=== PATIENT | male | born 1990 | race Caucasian/White ===

== ENCOUNTER 2016-11-10 16:22 | Emergency (ER) | payer OTHER ==
[~2016-11-10] VITALS: Ht 188 cm; Wt 109.1 kg
[~2016-11-10 16:22] MED LIST: AMOXICILLIN875 MG PO; INDOCIN25 MG PO; MOTRIN600 MG PO; MOTRIN800 MG PO; NAPROSYN500 MG PO; NAPROXEN500 MG; NO HOME MEDS; NORCO 7.5/321 TABLET PO; PEN-VEE K,VEET500 MG PO; PERCOCET 5/31 TABLET PO; ZOFRAN4 MG PO
[2016-11-10 16:39] VITALS: BP 152/93
[2016-11-10] MEDS ORDERED: INDOCIN50 MG PO (18:00)
== END 2016-11-10 18:23 | disposition home or self-care (01) ==
LOC: EME 16:22
DX: S93.401A Sprain of unspecified ligament of right ankle, initial encounter (principal); X50.1XXA Overexertion from prolonged static or awkward postures, initial encounter; F17.200 Nicotine dependence, unspecified, uncomplicated
CPT/HCPCS: 73610; 99281; 99284

== ENCOUNTER 2017-01-30 10:51 | Emergency (ER) | payer OTHER ==
[~2017-01-30] VITALS: Ht 188 cm; Wt 108.0 kg
[~2017-01-30 10:51] MED LIST changes: +INDOCIN50 MG PO
[2017-01-30 10:54] VITALS: BP 146/99
== END 2017-01-30 13:01 | disposition left against medical advice (07) ==
LOC: EME 10:51
DX: F10.20 Alcohol dependence, uncomplicated (principal); Z53.21 Procedure and treatment not carried out due to patient leaving prior to being seen by health care provider

== ENCOUNTER 2017-02-01 13:01 | Emergency (ER) | payer OTHER ==
[~2017-02-01] VITALS: Ht 188 cm; Wt 107.0 kg
[2017-02-01 15:33] LABS: EOSINOPHIL (%) 0.3 % (0-5); HEMATOCRIT 47.5 % (38.0-50.0); IMMATURE GRANULOCYTE (%) 0.3 % (0.0-0.7); INSTRUMENT ABS NEUTROPHIL CT 5.9 K/uL; LYMPHOCYTE COUNT 1.4 K/uL (1.0-2.8); MCH 31.3 PG (29.0-34.0); MCHC 34.7 G/DL (30.0-36.0); MEAN PLAT.VOLUME 10.9 uM^3 (9.0-12.4); MONOCYTE (%) 5.7 % (3-12); MONOCYTE COUNT 0.4 K/uL (0-0.8); NEUTROPHIL (%) 75.3 % (45-76); NEUTROPHIL COUNT 5.9 K/uL (1.8-6.4); PLATELET COUNT 226 K/uL (156-360); RBC DIS.WIDTH-CV 12.8 % (11.8-14.6); RBC DIS.WIDTH-SD 42.5 % (39-53); RED BLOOD COUNT 5.28 M/uL (4.00-5.50); WHITE BLOOD COUNT 7.8 K/uL (4.1-10.2)
[2017-02-01 15:41] LABS: CHLORIDE 105 mEq/L (99-109); POTASSIUM 4.1 mEq/L (3.7-5.4); SODIUM 142 mEq/L (136-147)
[2017-02-01 15:43] LABS: GLUCOSE 73 mg/dL (70-99)
[2017-02-01 15:44] LABS: ANION GAP 12 MEQ/L (2-14)
[2017-02-01 15:46] LABS: SERUM ETHYL ALCOHOL 20 mg/dL
[2017-02-01 15:47] LABS: GFR ESTIMATE (CALCULATED) > 59 mL/min/
[2017-02-01 15:48] LABS: UREA NITROGEN (BUN) 10 mg/dL (9-23)
[2017-02-01] MEDS ORDERED: THIAMINE HCL100 MG PO (16:30)
[2017-02-01] MEDS ORDERED: LIBRIUM25 MG PO (16:30)
[2017-02-01 16:52] VITALS: BP 152/92
== END 2017-02-01 17:00 | disposition home or self-care (01) ==
LOC: EME 13:01
PROVIDERS: Emergency Medicine
DX: F10.20 Alcohol dependence, uncomplicated (principal); T51.0X1A Toxic effect of ethanol, accidental (unintentional), initial encounter; G25.2 Other specified forms of tremor; R19.7 Diarrhea, unspecified; R42 Dizziness and giddiness; R11.0 Nausea; F32.9 Major depressive disorder, single episode, unspecified; F41.9 Anxiety disorder, unspecified; F17.200 Nicotine dependence, unspecified, uncomplicated
CPT/HCPCS: 80048; 81003; 85025; 99281; 99283; G0480

== ENCOUNTER 2017-02-16 10:52 | Emergency (ER) | payer OTHER ==
[~2017-02-16] VITALS: Ht 188 cm; Wt 104.8 kg
[~2017-02-16 10:52] MED LIST changes: +LIBRIUM25 MG PO; +THIAMINE HCL100 MG PO
[2017-02-16 12:30] LABS: ADD MIUA? YES; BILIRUBIN NEGATIVE; BLOOD NEGATIVE; COLOR YELLOW ((YELLOW)); GLUCOSE (STRIP) NEGATIVE; KETONES NEGATIVE; LEUKOCYTES NEGATIVE; NITRITE NEGATIVE; PROTEIN (STRIP) NEGATIVE; SPECIFIC GRAVITY 1.025 (1.000-1.030); UROBILINOGEN 0.2 MG/DL (0.2-1.0)
[2017-02-16 12:36] LABS: BACTERIA NONE SEEN /HPF; EPITHELIAL CELLS RARE /HPF; MUCUS TRACE /LPF; RED BLOOD CELLS 0-5 /HPF (0-5); UCUL ADDED? YES
[2017-02-16 12:40] LABS: AMPHETAMINE NEGATIVE (500 ng/mL); BENZODIAZEPINES PRESUMPTIVE POSITIVE (150 ng/mL); COCAINE PRESUMPTIVE POSITIVE (150 ng/mL); METHADONE NEGATIVE (200 ng/mL); METHAMPHETAMINE NEGATIVE (500 ng/mL); OPIATES (MORPHINE) NEGATIVE (100 ng/mL); PHENCYCLIDINE NEGATIVE (25 ng/mL); THC CANNABINOIDS PRESUMPTIVE POSITIVE (50 ng/mL); TRICYCLIC ANTIDEPRESSANTS NEGATIVE (300 ng/mL)
[2017-02-16 12:41] LABS: ADD MEDTOX COMMENT Y; BARBITURATES NEGATIVE (200 ng/mL); INTERNAL CONTROLS VALID? YES; OXYCODONE NEGATIVE (100 ng/mL); PROPOXYPHENE NEGATIVE (300 ng/mL)
[2017-02-16 12:51] LABS: EOSINOPHIL (%) 0 % (0-5); HEMATOCRIT 44.1 % (38.0-50.0); IMMATURE GRANULOCYTE (%) 0.2 % (0.0-0.7); INSTRUMENT ABS NEUTROPHIL CT 3.8 K/uL; LYMPHOCYTE COUNT 1.2 K/uL (1.0-2.8); MCH 31.5 PG (29.0-34.0); MCHC 34.2 G/DL (30.0-36.0); MCV 91.9 FL (86-99); MEAN PLAT.VOLUME 10.9 uM^3 (9.0-12.4); MONOCYTE (%) 4.4 % (3-12); MONOCYTE COUNT 0.2 K/uL (0-0.8); NEUTROPHIL (%) 73.2 % (45-76); NEUTROPHIL COUNT 3.8 K/uL (1.8-6.4); PLATELET COUNT 244 K/uL (156-360); RBC DIS.WIDTH-CV 13.3 % (11.8-14.6); RBC DIS.WIDTH-SD 45.1 % (39-53); WHITE BLOOD COUNT 5.2 K/uL (4.1-10.2)
[2017-02-16 13:03] LABS: CHLORIDE 107 mEq/L (99-109); POTASSIUM 4.7 mEq/L (3.7-5.4); SODIUM 140 mEq/L (136-147)
[2017-02-16 13:05] LABS: GLUCOSE 98 mg/dL (70-99)
[2017-02-16 13:06] LABS: ANION GAP 9 MEQ/L (2-14)
[2017-02-16 13:09] LABS: GFR ESTIMATE (CALCULATED) > 59 mL/min/
[2017-02-16 13:10] LABS: UREA NITROGEN (BUN) 12 mg/dL (9-23)
[2017-02-16 13:13] LABS: TROP-I INTERPRETATION NEGATIVE; TROPONIN-I < 0.01 ng/mL (0.0-0.30)
[2017-02-16 13:28] LABS: BENZODIAZEPINES, URINE SCREEN POSITIVE (200 ng/mL)
[2017-02-16 14:04] VITALS: BP 155/78
== END 2017-02-16 14:05 | disposition home or self-care (01) ==
LOC: EME 10:52
PROVIDERS: Emergency Medicine
DX: F19.10 Other psychoactive substance abuse, uncomplicated (principal); F12.90 Cannabis use, unspecified, uncomplicated; F17.200 Nicotine dependence, unspecified, uncomplicated
CPT/HCPCS: 80048; 81003; 84484; 84999; 85025; 87086; 93005; 99281; 99285

== ENCOUNTER 2017-02-19 12:32 | Emergency (ER) | payer OTHER ==
[~2017-02-19] VITALS: Ht 182.9 cm; Wt 107.2 kg
[2017-02-19 13:43] LABS: EOSINOPHIL (%) 0.7 % (0-5); HEMATOCRIT 44.9 % (38.0-50.0); IMMATURE GRANULOCYTE (%) 0.2 % (0.0-0.7); INSTRUMENT ABS NEUTROPHIL CT 2.7 K/uL; LYMPHOCYTE COUNT 1.3 K/uL (1.0-2.8); MCH 31.4 PG (29.0-34.0); MCHC 34.1 G/DL (30.0-36.0); MEAN PLAT.VOLUME 11.6 uM^3 (9.0-12.4); MONOCYTE (%) 7.8 % (3-12); MONOCYTE COUNT 0.3 K/uL (0-0.8); NEUTROPHIL COUNT 2.7 K/uL (1.8-6.4); PLATELET COUNT 191 K/uL (156-360); RBC DIS.WIDTH-SD 44.1 % (39-53); RED BLOOD COUNT 4.88 M/uL (4.00-5.50); WHITE BLOOD COUNT 4.4 K/uL (4.1-10.2)
[2017-02-19 13:54] LABS: CHLORIDE 105 mEq/L (99-109); POTASSIUM 4.2 mEq/L (3.7-5.4); SODIUM 141 mEq/L (136-147)
[2017-02-19 13:56] LABS: GLUCOSE 77 mg/dL (70-99)
[2017-02-19 13:57] LABS: ANION GAP 14 MEQ/L (2-14)
[2017-02-19 13:58] LABS: TOTAL BILIRUBIN 1.4 mg/dL (0.0-1.0)
[2017-02-19 13:59] LABS: ALKALINE PHOSPHATASE 77 IU/L (3-129)
[2017-02-19 14:00] LABS: GFR ESTIMATE (CALCULATED) > 59 mL/min/
[2017-02-19 14:01] LABS: UREA NITROGEN (BUN) 11 mg/dL (9-23)
[2017-02-19 14:03] LABS: LIPASE 12 U/L (1.0-51.0)
[2017-02-19] MEDS ORDERED: COLACE100 MG PO (15:36)
[2017-02-19] MEDS ORDERED: BENTYL20 MG PO (15:36)
[2017-02-19] MEDS ORDERED: FLAGYL500 MG PO (15:36)
[2017-02-19] MEDS ORDERED: CIPRO500 MG PO (15:36)
[2017-02-19] MEDS ORDERED: CITRATE OF MAG296 ML PO (15:36)
[2017-02-19 16:15] VITALS: BP 153/69
[2017-02-20] MEDS ORDERED: CITRATE OF MAG296 ML PO (20:56)
== END 2017-02-19 16:18 | disposition home or self-care (01) ==
LOC: EME 12:32
PROVIDERS: Emergency Medicine
DX: K52.9 Noninfective gastroenteritis and colitis, unspecified (principal); K59.00 Constipation, unspecified; F41.9 Anxiety disorder, unspecified; F32.9 Major depressive disorder, single episode, unspecified; F17.200 Nicotine dependence, unspecified, uncomplicated; F12.90 Cannabis use, unspecified, uncomplicated; F14.90 Cocaine use, unspecified, uncomplicated; F10.10 Alcohol abuse, uncomplicated
CPT/HCPCS: 74177; 80053; 83690; 85025; 99281; 99285; J1885

== ENCOUNTER 2017-02-20 18:02 | Emergency (ER) | payer OTHER ==
[~2017-02-20] VITALS: Ht 188 cm; Wt 110.6 kg
[~2017-02-20 18:02] MED LIST changes: +BENTYL20 MG PO; +CIPRO500 MG PO; +CITRATE OF MAG296 ML PO; +COLACE100 MG PO; +FLAGYL500 MG PO
[2017-02-20 19:30] LABS: HEMATOCRIT 43.8 % (38.0-50.0); MCH 31.4 PG (29.0-34.0); MCHC 34.9 G/DL (30.0-36.0); MCV 89.9 FL (86-99); MEAN PLAT.VOLUME 11.1 uM^3 (9.0-12.4); PLATELET COUNT 223 K/uL (156-360); RBC DIS.WIDTH-CV 12.6 % (11.8-14.6); RBC DIS.WIDTH-SD 41.7 % (39-53); RED BLOOD COUNT 4.87 M/uL (4.00-5.50); WHITE BLOOD COUNT 4.5 K/uL (4.1-10.2)
[2017-02-20 19:40] LABS: CHLORIDE 108 mEq/L (99-109); POTASSIUM 3.5 mEq/L (3.7-5.4); SODIUM 141 mEq/L (136-147)
[2017-02-20 19:42] LABS: GLUCOSE 89 mg/dL (70-99)
[2017-02-20 19:43] LABS: ANION GAP 11 MEQ/L (2-14)
[2017-02-20 19:45] LABS: TOTAL BILIRUBIN 0.9 mg/dL (0.0-1.0)
[2017-02-20 19:46] LABS: ALKALINE PHOSPHATASE 68 IU/L (3-129); GFR ESTIMATE (CALCULATED) > 59 mL/min/
[2017-02-20 19:47] LABS: UREA NITROGEN (BUN) 10 mg/dL (9-23)
[2017-02-20 20:24] LABS: LIPASE 10 U/L (1.0-51.0)
[2017-02-20] MEDS ORDERED: CITRATE OF MAG296 ML PO (20:56)
[2017-02-20 21:04] VITALS: BP 125/92
== END 2017-02-20 21:07 | disposition home or self-care (01) ==
LOC: EME 18:02
PROVIDERS: Physician Assistant Medical
DX: K59.00 Constipation, unspecified (principal); R10.9 Unspecified abdominal pain; F17.200 Nicotine dependence, unspecified, uncomplicated
CPT/HCPCS: 74022; 80053; 81003; 83690; 85027; 99281; 99284

== ENCOUNTER 2017-02-22 11:38 | Emergency (ER) | payer OTHER ==
[~2017-02-22] VITALS: Ht 188 cm; Wt 108.6 kg
[2017-02-22 12:35] LABS: EOSINOPHIL (%) 0.6 % (0-5); HEMATOCRIT 43.6 % (38.0-50.0); IMMATURE GRANULOCYTE (%) 0.3 % (0.0-0.7); INSTRUMENT ABS NEUTROPHIL CT 1.9 K/uL; LYMPHOCYTE COUNT 1.3 K/uL (1.0-2.8); MCH 31.8 PG (29.0-34.0); MCHC 35.3 G/DL (30.0-36.0); MCV 90.1 FL (86-99); MONOCYTE (%) 7.8 % (3-12); MONOCYTE COUNT 0.3 K/uL (0-0.8); NEUTROPHIL (%) 53.5 % (45-76); NEUTROPHIL COUNT 1.9 K/uL (1.8-6.4); PLATELET COUNT 194 K/uL (156-360); RBC DIS.WIDTH-CV 12.9 % (11.8-14.6); RBC DIS.WIDTH-SD 42.3 % (39-53); RED BLOOD COUNT 4.84 M/uL (4.00-5.50); WHITE BLOOD COUNT 3.6 K/uL (4.1-10.2)
[2017-02-22 12:46] LABS: CHLORIDE 105 mEq/L (99-109); SODIUM 140 mEq/L (136-147)
[2017-02-22 12:48] LABS: GLUCOSE 80 mg/dL (70-99)
[2017-02-22 12:49] LABS: ANION GAP 13 MEQ/L (2-14)
[2017-02-22 12:50] LABS: TOTAL BILIRUBIN 0.9 mg/dL (0.0-1.0)
[2017-02-22 12:51] LABS: ALKALINE PHOSPHATASE 67 IU/L (3-129)
[2017-02-22 12:52] LABS: GFR ESTIMATE (CALCULATED) > 59 mL/min/
[2017-02-22 12:53] LABS: UREA NITROGEN (BUN) 11 mg/dL (9-23)
[2017-02-22 12:55] LABS: LIPASE 10 U/L (1.0-51.0)
[2017-02-22 14:41] VITALS: BP 110/48
== END 2017-02-22 14:42 | disposition home or self-care (01) ==
LOC: EME 11:38
PROVIDERS: Emergency Medicine
DX: R10.84 Generalized abdominal pain (principal); K59.00 Constipation, unspecified; F32.9 Major depressive disorder, single episode, unspecified; F41.9 Anxiety disorder, unspecified; F14.10 Cocaine abuse, uncomplicated; F12.10 Cannabis abuse, uncomplicated; F17.200 Nicotine dependence, unspecified, uncomplicated
CPT/HCPCS: 80053; 83690; 85025; 99281; 99284

== ENCOUNTER 2017-02-25 22:25 | Emergency (ER) | payer OTHER ==
[~2017-02-25] VITALS: Ht 190.5 cm; Wt 111.9 kg
[2017-02-25 23:30] LABS: HEMATOCRIT 41.2 % (38.0-50.0); MCH 31.7 PG (29.0-34.0); MCHC 34.7 G/DL (30.0-36.0); MCV 91.4 FL (86-99); RBC DIS.WIDTH-CV 13.1 % (11.8-14.6); RBC DIS.WIDTH-SD 43.8 % (39-53); RED BLOOD COUNT 4.51 M/uL (4.00-5.50); WHITE BLOOD COUNT 4.5 K/uL (4.1-10.2)
[2017-02-25 23:43] LABS: CHLORIDE 106 mEq/L (99-109); POTASSIUM 4.1 mEq/L (3.7-5.4); SODIUM 140 mEq/L (136-147)
[2017-02-25 23:45] LABS: GLUCOSE 76 mg/dL (70-99)
[2017-02-25 23:46] LABS: ADD MIUA? YES; BILIRUBIN NEGATIVE; BLOOD NEGATIVE; COLOR YELLOW ((YELLOW)); GLUCOSE (STRIP) NEGATIVE; KETONES NEGATIVE; LEUKOCYTES TRACE; NITRITE NEGATIVE; PROTEIN (STRIP) NEGATIVE; SPECIFIC GRAVITY 1.023 (1.000-1.030); UROBILINOGEN 0.2 MG/DL (0.2-1.0)
[2017-02-25 23:47] LABS: ANION GAP 12 MEQ/L (2-14)
[2017-02-25 23:49] LABS: ALKALINE PHOSPHATASE 61 IU/L (3-129); GFR ESTIMATE (CALCULATED) > 59 mL/min/
[2017-02-25 23:50] LABS: BACTERIA NONE SEEN /HPF; EPITHELIAL CELLS RARE /HPF; MUCUS 1+ /LPF; RED BLOOD CELLS 0-5 /HPF (0-5); UCUL ADDED? NO; WHITE BLOOD CELLS 0-5 /HPF (0-5)
[2017-02-25 23:50] LABS: TOTAL BILIRUBIN 0.3 mg/dL (0.0-1.0); UREA NITROGEN (BUN) 16 mg/dL (9-23)
[2017-02-26 00:27] VITALS: BP 129/86
[2017-02-26 00:32] LABS: PLAT.SUFFICIENCY ADEQUATE; PLATELET COUNT 195 K/uL (156-360)
== END 2017-02-26 00:35 | disposition home or self-care (01) ==
LOC: EME 22:25
DX: R10.9 Unspecified abdominal pain (principal); F17.200 Nicotine dependence, unspecified, uncomplicated
CPT/HCPCS: 80053; 81003; 85027; 99281; 99284

== ENCOUNTER 2017-02-28 17:55 | Emergency (ER) | payer OTHER ==
[~2017-02-28] VITALS: Ht 190.5 cm; Wt 106.8 kg
[2017-02-28 19:36] LABS: HEMATOCRIT 49.4 % (38.0-50.0); MCH 31.4 PG (29.0-34.0); MCV 89.7 FL (86-99); MEAN PLAT.VOLUME 11.9 uM^3 (9.0-12.4); PLATELET COUNT 191 K/uL (156-360); RBC DIS.WIDTH-CV 12.2 % (11.8-14.6); RBC DIS.WIDTH-SD 40.6 % (39-53); RED BLOOD COUNT 5.51 M/uL (4.00-5.50)
[2017-02-28 19:50] LABS: CHLORIDE 104 mEq/L (99-109); POTASSIUM 4.4 mEq/L (3.7-5.4); SODIUM 138 mEq/L (136-147)
[2017-02-28 19:52] LABS: GLUCOSE 85 mg/dL (70-99)
[2017-02-28 19:53] LABS: ANION GAP 15 MEQ/L (2-14)
[2017-02-28 19:56] LABS: GFR ESTIMATE (CALCULATED) > 59 mL/min/
[2017-02-28 19:57] LABS: UREA NITROGEN (BUN) 7 mg/dL (9-23)
[2017-02-28 19:59] LABS: LIPASE 12 U/L (1.0-51.0)
[2017-02-28 20:11] LABS: ALKALINE PHOSPHATASE 68 IU/L (3-129)
[2017-02-28 20:27] LABS: TOTAL BILIRUBIN 0.8 mg/dL (0.0-1.0)
[2017-02-28 20:40] LABS: SERUM ETHYL ALCOHOL < 10 mg/dL
[2017-02-28 21:12] LABS: C DIFF TOXIN NEGATIVE (NEGATIVE)
[2017-02-28 21:14] LABS: PROBE CHECK PASS; SPECIMEN PROCESSING CONTROL PASS
[2017-02-28 21:38] VITALS: BP 156/96
[2017-03-01] MEDS ORDERED: BUSPAR5 MG PO (22:07)
[2017-03-01] MEDS ORDERED: KLONOPIN0.5 M1 PO (22:20)
== END 2017-02-28 22:07 | disposition home or self-care (01) ==
LOC: EME 17:55
PROVIDERS: Physician Assistant
DX: R19.7 Diarrhea, unspecified (principal); T50.995A Adverse effect of other drugs, medicaments and biological substances, initial encounter; E86.0 Dehydration; F41.9 Anxiety disorder, unspecified; F17.200 Nicotine dependence, unspecified, uncomplicated
CPT/HCPCS: 80053; 81003; 83690; 85027; 87493; 99281; 99284; G0480; J1200; J2060; J7030

== ENCOUNTER 2017-03-01 16:51 | Emergency (ER) | payer OTHER ==
[~2017-03-01] VITALS: Ht 190.5 cm; Wt 108.0 kg
[2017-03-01 17:54] LABS: EOSINOPHIL (%) 0.2 % (0-5); HEMATOCRIT 44.4 % (38.0-50.0); IMMATURE GRANULOCYTE (%) 0.2 % (0.0-0.7); INSTRUMENT ABS NEUTROPHIL CT 2.7 K/uL; LYMPHOCYTE COUNT 1.3 K/uL (1.0-2.8); MCH 31.8 PG (29.0-34.0); MCHC 35.1 G/DL (30.0-36.0); MCV 90.4 FL (86-99); MEAN PLAT.VOLUME 11.7 uM^3 (9.0-12.4); MONOCYTE (%) 4.7 % (3-12); MONOCYTE COUNT 0.2 K/uL (0-0.8); NEUTROPHIL (%) 62.8 % (45-76); NEUTROPHIL COUNT 2.7 K/uL (1.8-6.4); PLATELET COUNT 201 K/uL (156-360); RBC DIS.WIDTH-CV 12.6 % (11.8-14.6); RBC DIS.WIDTH-SD 42.3 % (39-53); RED BLOOD COUNT 4.91 M/uL (4.00-5.50); WHITE BLOOD COUNT 4.2 K/uL (4.1-10.2)
[2017-03-01 18:05] LABS: CHLORIDE 109 mEq/L (99-109); POTASSIUM 3.6 mEq/L (3.7-5.4); SODIUM 141 mEq/L (136-147)
[2017-03-01 18:08] LABS: GLUCOSE 81 mg/dL (70-99)
[2017-03-01 18:09] LABS: ANION GAP 11 MEQ/L (2-14)
[2017-03-01 18:10] LABS: TOTAL BILIRUBIN 0.8 mg/dL (0.0-1.0)
[2017-03-01 18:11] LABS: ALKALINE PHOSPHATASE 57 IU/L (3-129); GFR ESTIMATE (CALCULATED) > 59 mL/min/; SERUM ETHYL ALCOHOL < 10 mg/dL
[2017-03-01 18:12] LABS: UREA NITROGEN (BUN) 9 mg/dL (9-23)
[2017-03-01] MEDS ORDERED: BUSPAR5 MG PO (22:07)
[2017-03-01] MEDS ORDERED: KLONOPIN0.5 M1 PO (22:20)
[2017-03-01 22:34] VITALS: BP 151/82
== END 2017-03-01 22:35 | disposition home or self-care (01) ==
LOC: EME 16:51
PROVIDERS: Emergency Medicine
DX: F41.9 Anxiety disorder, unspecified (principal); R51 Headache; F43.22 Adjustment disorder with anxiety; F17.200 Nicotine dependence, unspecified, uncomplicated
CPT/HCPCS: 70450; 80053; 85025; 90837; 99281; 99284; G0480

== ENCOUNTER 2017-03-03 17:43 | Emergency (ER) | payer OTHER ==
[~2017-03-03] VITALS: Ht 190.5 cm; Wt 106.4 kg
[~2017-03-03 17:43] MED LIST changes: +BUSPAR5 MG PO; +KLONOPIN0.5 M1 PO
[2017-03-03 20:04] VITALS: BP 129/104
== END 2017-03-03 20:10 | disposition home or self-care (01) ==
LOC: EME 17:43
DX: B34.9 Viral infection, unspecified (principal); F41.9 Anxiety disorder, unspecified; F17.200 Nicotine dependence, unspecified, uncomplicated
CPT/HCPCS: 99281; 99284; Q0177

== ENCOUNTER 2017-03-04 01:40 | Emergency (ER) | payer OTHER ==
[~2017-03-04] VITALS: Ht 190.5 cm; Wt 105.5 kg
[2017-03-04 04:16] VITALS: BP 129/76
[2017-03-05] MEDS ORDERED: ATARAX,VISTARIL50 MG PO (22:06)
[2017-03-05] MEDS ORDERED: LEVSIN-SL0.125 MG SL (22:06)
== END 2017-03-04 04:18 | disposition home or self-care (01) ==
LOC: EME 01:40
DX: J18.9 Pneumonia, unspecified organism (principal); F41.9 Anxiety disorder, unspecified; F12.90 Cannabis use, unspecified, uncomplicated; F17.200 Nicotine dependence, unspecified, uncomplicated
CPT/HCPCS: 71020; 93005; 99281; 99285

== ENCOUNTER 2017-03-05 21:14 | Emergency (ER) | payer OTHER ==
[~2017-03-05] VITALS: Ht 190.5 cm; Wt 107.8 kg
[2017-03-05] MEDS ORDERED: LEVSIN-SL0.125 MG SL (22:06)
[2017-03-05] MEDS ORDERED: ATARAX,VISTARIL50 MG PO (22:06)
[2017-03-05 22:21] VITALS: BP 151/99
== END 2017-03-05 22:22 | disposition home or self-care (01) ==
LOC: EME 21:14 → EXP 21:14
DX: F43.9 Reaction to severe stress, unspecified (principal); R10.9 Unspecified abdominal pain; F10.10 Alcohol abuse, uncomplicated; F19.10 Other psychoactive substance abuse, uncomplicated; F41.9 Anxiety disorder, unspecified; F32.9 Major depressive disorder, single episode, unspecified; F17.200 Nicotine dependence, unspecified, uncomplicated
CPT/HCPCS: 99281; 99283; Q0177

== ENCOUNTER 2017-03-07 11:49 | Emergency (ER) | payer OTHER ==
[~2017-03-07] VITALS: Ht 190.5 cm; Wt 106.7 kg
[~2017-03-07 11:49] MED LIST changes: +ATARAX,VISTARIL50 MG PO; +LEVSIN-SL0.125 MG SL
[2017-03-07] MEDS ORDERED: MOTRIN600 MG PO (14:01)
[2017-03-07 14:28] VITALS: BP 104/88
== END 2017-03-07 14:28 | disposition home or self-care (01) ==
LOC: EME 11:49
DX: B34.9 Viral infection, unspecified (principal); R07.89 Other chest pain; F41.9 Anxiety disorder, unspecified; F32.9 Major depressive disorder, single episode, unspecified; F17.200 Nicotine dependence, unspecified, uncomplicated; F10.10 Alcohol abuse, uncomplicated; F14.10 Cocaine abuse, uncomplicated; F12.10 Cannabis abuse, uncomplicated
CPT/HCPCS: 99281; 99283

== ENCOUNTER 2017-03-15 00:33 | Emergency (ER) | payer OTHER ==
[~2017-03-15] VITALS: Ht 190.5 cm; Wt 103.5 kg
[2017-03-15 00:59] LABS: HEMATOCRIT 42.1 % (38.0-50.0); MCH 31.7 PG (29.0-34.0); MCHC 36.1 G/DL (30.0-36.0); MCV 87.7 FL (86-99); RBC DIS.WIDTH-CV 11.9 % (11.8-14.6); RBC DIS.WIDTH-SD 38.6 % (39-53)
[2017-03-15 01:13] LABS: CHLORIDE 106 mEq/L (99-109); POTASSIUM 3.6 mEq/L (3.7-5.4); SODIUM 142 mEq/L (136-147)
[2017-03-15 01:15] LABS: GLUCOSE 82 mg/dL (70-99)
[2017-03-15 01:17] LABS: ANION GAP 11 MEQ/L (2-14); TOTAL BILIRUBIN 1.5 mg/dL (0.0-1.0)
[2017-03-15 01:19] LABS: ALKALINE PHOSPHATASE 52 IU/L (3-129); GFR ESTIMATE (CALCULATED) > 59 mL/min/
[2017-03-15 01:20] LABS: UREA NITROGEN (BUN) 8 mg/dL (9-23)
[2017-03-15 01:51] LABS: MEAN PLAT.VOLUME 11.4 uM^3 (9.0-12.4); PLAT.SUFFICIENCY ADEQUATE; PLATELET COUNT 168 K/uL (156-360)
[2017-03-15 02:23] LABS: LIPASE 23 U/L (1.0-51.0)
[2017-03-15 04:27] VITALS: BP 152/74
== END 2017-03-15 04:28 | disposition home or self-care (01) ==
LOC: EME 00:33
DX: R10.84 Generalized abdominal pain (principal); R11.0 Nausea; Z98.890 Other specified postprocedural states; F32.9 Major depressive disorder, single episode, unspecified; F41.9 Anxiety disorder, unspecified; Z87.891 Personal history of nicotine dependence
CPT/HCPCS: 74020; 80053; 81003; 83690; 83735; 84100; 85027; 99281; 99285; J2765; S0028

== ENCOUNTER 2017-03-16 21:07 | Emergency (ER) | payer OTHER ==
[~2017-03-16] VITALS: Ht 190.5 cm; Wt 104.1 kg
[2017-03-16 21:56] LABS: HEMATOCRIT 44.9 % (38.0-50.0); MCH 31.2 PG (29.0-34.0); MCHC 35.4 G/DL (30.0-36.0); MEAN PLAT.VOLUME 11.4 uM^3 (9.0-12.4); PLATELET COUNT 186 K/uL (156-360); RBC DIS.WIDTH-CV 12.1 % (11.8-14.6); RBC DIS.WIDTH-SD 39.3 % (39-53)
[2017-03-16 22:05] LABS: CHLORIDE 104 mEq/L (99-109); POTASSIUM 3.6 mEq/L (3.7-5.4); SODIUM 141 mEq/L (136-147)
[2017-03-16 22:07] LABS: GLUCOSE 83 mg/dL (70-99)
[2017-03-16 22:08] LABS: ANION GAP 11 MEQ/L (2-14)
[2017-03-16 22:11] LABS: GFR ESTIMATE (CALCULATED) > 59 mL/min/
[2017-03-16 22:12] LABS: UREA NITROGEN (BUN) 7 mg/dL (9-23)
[2017-03-16 22:18] LABS: TROP-I INTERPRETATION NEGATIVE; TROPONIN-I < 0.01 ng/mL (0.0-0.30)
[2017-03-17] MEDS ORDERED: MAALOX MAXIMUM355 ML PO (01:06)
[2017-03-17 01:28] VITALS: BP 122/72
== END 2017-03-17 01:29 | disposition home or self-care (01) ==
LOC: EME 21:07
DX: R07.89 Other chest pain (principal); K21.9 Gastro-esophageal reflux disease without esophagitis; F41.9 Anxiety disorder, unspecified; F32.9 Major depressive disorder, single episode, unspecified; F17.200 Nicotine dependence, unspecified, uncomplicated
CPT/HCPCS: 71020; 80048; 84484; 85027; 93005; 99281; 99284

== ENCOUNTER 2017-03-19 20:51 | Emergency (ER) | payer OTHER ==
[~2017-03-19] VITALS: Ht 190.5 cm; Wt 103.4 kg
[~2017-03-19 20:51] MED LIST changes: +MAALOX MAXIMUM355 ML PO
[2017-03-19 22:00] LABS: HEMATOCRIT 41.4 % (38.0-50.0); MCH 31.1 PG (29.0-34.0); MCHC 35.7 G/DL (30.0-36.0); MEAN PLAT.VOLUME 11.6 uM^3 (9.0-12.4); PLATELET COUNT 169 K/uL (156-360); RBC DIS.WIDTH-CV 11.9 % (11.8-14.6); RBC DIS.WIDTH-SD 38.2 % (39-53); RED BLOOD COUNT 4.76 M/uL (4.00-5.50); WHITE BLOOD COUNT 4.3 K/uL (4.1-10.2)
[2017-03-19 22:00] LABS: ADD MIUA? YES; BILIRUBIN NEGATIVE; BLOOD NEGATIVE; COLOR YELLOW ((YELLOW)); GLUCOSE (STRIP) NEGATIVE; KETONES 5; LEUKOCYTES TRACE; NITRITE NEGATIVE; PROTEIN (STRIP) 30; SPECIFIC GRAVITY 1.021 (1.000-1.030)
[2017-03-19 22:10] LABS: CHLORIDE 106 mEq/L (99-109); POTASSIUM 3.6 mEq/L (3.7-5.4); SODIUM 140 mEq/L (136-147)
[2017-03-19 22:12] LABS: GLUCOSE 79 mg/dL (70-99)
[2017-03-19 22:13] LABS: ANION GAP 14 MEQ/L (2-14)
[2017-03-19 22:15] LABS: ALKALINE PHOSPHATASE 60 IU/L (3-129)
[2017-03-19 22:16] LABS: GFR ESTIMATE (CALCULATED) > 59 mL/min/
[2017-03-19 22:17] LABS: UREA NITROGEN (BUN) 10 mg/dL (9-23)
[2017-03-19] MEDS ORDERED: PROTONIX20 MG PO (22:26)
[2017-03-19 22:41] VITALS: BP 135/86
[2017-03-19 22:53] LABS: RED BLOOD CELLS 0-5 /HPF (0-5); WHITE BLOOD CELLS 0-5 /HPF (0-5)
[2017-03-19 22:54] LABS: BACTERIA 1+ /HPF; EPITHELIAL CELLS RARE /HPF; MUCUS 2+ /LPF; UCUL ADDED? NO
[2017-03-19 22:56] LABS: PH, URINE 6.5 (5-8)
[2017-03-19 23:09] LABS: TOTAL BILIRUBIN 0.6 MG/DL (0.0-1.0)
[2017-03-19 23:14] LABS: LIPASE 10 U/L (1.0-51.0)
== END 2017-03-19 23:53 | disposition home or self-care (01) ==
LOC: EXP 20:51 → EME 20:51 → EXP 23:53
DX: K21.9 Gastro-esophageal reflux disease without esophagitis (principal); Z98.890 Other specified postprocedural states; F41.9 Anxiety disorder, unspecified; F32.9 Major depressive disorder, single episode, unspecified; F17.200 Nicotine dependence, unspecified, uncomplicated
CPT/HCPCS: 80053; 81003; 83690; 85027; 99281; 99284

== ENCOUNTER 2017-03-21 21:36 | Emergency (ER) | payer OTHER ==
[~2017-03-21] VITALS: Ht 190.5 cm; Wt 102.8 kg
[~2017-03-21 21:36] MED LIST changes: +PROTONIX20 MG PO
[2017-03-22] MEDS ORDERED: LIBRIUM25 MG PO (00:35)
[2017-03-22 00:44] VITALS: BP 160/88
== END 2017-03-22 00:47 | disposition home or self-care (01) ==
LOC: EXP 21:36 → EME 21:36 → EXP 03-22 00:47
DX: F41.9 Anxiety disorder, unspecified (principal); F10.239 Alcohol dependence with withdrawal, unspecified; F32.9 Major depressive disorder, single episode, unspecified; F12.90 Cannabis use, unspecified, uncomplicated; F17.200 Nicotine dependence, unspecified, uncomplicated
CPT/HCPCS: 93005; 99281; 99284

== ENCOUNTER 2017-04-01 14:07 | Emergency (ER) | payer OTHER ==
[~2017-04-01] VITALS: Ht 190.5 cm; Wt 103.0 kg
[2017-04-01 15:23] LABS: HEMATOCRIT 42.7 % (38.0-50.0); MCH 31.6 PG (29.0-34.0); MCHC 34.9 G/DL (30.0-36.0); MCV 90.7 FL (86-99); MEAN PLAT.VOLUME 10.8 uM^3 (9.0-12.4); PLATELET COUNT 201 K/uL (156-360); RBC DIS.WIDTH-CV 13.3 % (11.8-14.6); RBC DIS.WIDTH-SD 43.5 % (39-53); RED BLOOD COUNT 4.71 M/uL (4.00-5.50); WHITE BLOOD COUNT 5.4 K/uL (4.1-10.2)
[2017-04-01 15:31] LABS: CHLORIDE 105 mEq/L (99-109); POTASSIUM 4.1 mEq/L (3.7-5.4); SODIUM 140 mEq/L (136-147)
[2017-04-01 15:34] LABS: GLUCOSE 75 mg/dL (70-99)
[2017-04-01 15:35] LABS: ANION GAP 11 MEQ/L (2-14); TOTAL BILIRUBIN 0.5 mg/dL (0.0-1.0)
[2017-04-01 15:37] LABS: ALKALINE PHOSPHATASE 75 IU/L (3-129); GFR ESTIMATE (CALCULATED) > 59 mL/min/; SERUM ETHYL ALCOHOL < 10 mg/dL
[2017-04-01 15:38] LABS: UREA NITROGEN (BUN) 14 mg/dL (9-23)
[2017-04-01 15:41] LABS: LIPASE 15 U/L (1.0-51.0)
[2017-04-01 18:25] VITALS: BP 137/79
== END 2017-04-01 18:30 | disposition home or self-care (01) ==
LOC: EME 14:07
PROVIDERS: Emergency Medicine
DX: F32.9 Major depressive disorder, single episode, unspecified (principal); R45.851 Suicidal ideations; F10.20 Alcohol dependence, uncomplicated; F41.9 Anxiety disorder, unspecified; R10.13 Epigastric pain; F17.200 Nicotine dependence, unspecified, uncomplicated; F12.90 Cannabis use, unspecified, uncomplicated; F14.90 Cocaine use, unspecified, uncomplicated
CPT/HCPCS: 80053; 81003; 83690; 85027; 90839; 99281; 99285; G0480

== ENCOUNTER 2017-04-01 23:27 | Emergency (ER) | payer OTHER ==
[~2017-04-01] VITALS: Ht 190.5 cm; Wt 103.0 kg
[2017-04-02 01:19] LABS: EOSINOPHIL (%) 0.7 % (0-5); HEMATOCRIT 41.1 % (38.0-50.0); IMMATURE GRANULOCYTE (%) 0.2 % (0.0-0.7); INSTRUMENT ABS NEUTROPHIL CT 2.2 K/uL; LYMPHOCYTE COUNT 1.9 K/uL (1.0-2.8); MCH 31.4 PG (29.0-34.0); MCHC 34.8 G/DL (30.0-36.0); MCV 90.3 FL (86-99); MEAN PLAT.VOLUME 10.7 uM^3 (9.0-12.4); MONOCYTE (%) 6.8 % (3-12); MONOCYTE COUNT 0.3 K/uL (0-0.8); NEUTROPHIL (%) 49.7 % (45-76); NEUTROPHIL COUNT 2.2 K/uL (1.8-6.4); PLATELET COUNT 193 K/uL (156-360); RBC DIS.WIDTH-CV 13.2 % (11.8-14.6); RBC DIS.WIDTH-SD 43.4 % (39-53); RED BLOOD COUNT 4.55 M/uL (4.00-5.50); WHITE BLOOD COUNT 4.4 K/uL (4.1-10.2)
[2017-04-02 01:27] LABS: CHLORIDE 104 mEq/L (99-109); POTASSIUM 3.9 mEq/L (3.7-5.4); SODIUM 140 mEq/L (136-147)
[2017-04-02 01:30] LABS: GLUCOSE 75 mg/dL (70-99)
[2017-04-02 01:31] LABS: ANION GAP 11 MEQ/L (2-14)
[2017-04-02 01:33] LABS: ALKALINE PHOSPHATASE 76 IU/L (3-129); GFR ESTIMATE (CALCULATED) > 59 mL/min/
[2017-04-02 01:34] LABS: UREA NITROGEN (BUN) 15 mg/dL (9-23)
[2017-04-02 01:37] LABS: LIPASE 9 U/L (1.0-51.0); TOTAL BILIRUBIN 1.1 mg/dL (0.0-1.0)
[2017-04-02 03:12] VITALS: BP 134/87
[2017-04-03] MEDS ORDERED: VENTOLIN HFA18 GM IH (21:02)
== END 2017-04-02 03:13 | disposition home or self-care (01) ==
LOC: EME 23:27
PROVIDERS: Emergency Medicine
DX: K29.20 Alcoholic gastritis without bleeding (principal); F10.20 Alcohol dependence, uncomplicated; R05 Cough; F17.200 Nicotine dependence, unspecified, uncomplicated
CPT/HCPCS: 80053; 81003; 83690; 85025; 99281; 99284

== ENCOUNTER 2017-04-03 19:07 | Emergency (ER) | payer OTHER ==
[~2017-04-03] VITALS: Ht 190.5 cm; Wt 102.7 kg
[2017-04-03 19:49] LABS: HEMATOCRIT 43.2 % (38.0-50.0); MCH 31.3 PG (29.0-34.0); MCHC 34.7 G/DL (30.0-36.0); MCV 90.2 FL (86-99); MEAN PLAT.VOLUME 10.3 uM^3 (9.0-12.4); PLATELET COUNT 198 K/uL (156-360); RBC DIS.WIDTH-CV 13.3 % (11.8-14.6); RBC DIS.WIDTH-SD 43.6 % (39-53); RED BLOOD COUNT 4.79 M/uL (4.00-5.50)
[2017-04-03 20:08] LABS: CHLORIDE 105 mEq/L (99-109); POTASSIUM 3.8 mEq/L (3.7-5.4); SODIUM 139 mEq/L (136-147)
[2017-04-03 20:09] LABS: GLUCOSE 79 mg/dL (70-99)
[2017-04-03 20:11] LABS: ANION GAP 9 MEQ/L (2-14)
[2017-04-03 20:13] LABS: GFR ESTIMATE (CALCULATED) > 59 mL/min/
[2017-04-03 20:14] LABS: UREA NITROGEN (BUN) 14 mg/dL (9-23)
[2017-04-03] MEDS ORDERED: VENTOLIN HFA18 GM IH (21:02)
[2017-04-03 21:17] VITALS: BP 138/84
== END 2017-04-03 21:18 | disposition home or self-care (01) ==
LOC: EXP 19:07 → EME 19:07 → EXP 21:18
PROVIDERS: Physician Assistant
DX: K29.50 Unspecified chronic gastritis without bleeding (principal); R05 Cough; J98.01 Acute bronchospasm; F17.200 Nicotine dependence, unspecified, uncomplicated; F41.9 Anxiety disorder, unspecified; F32.9 Major depressive disorder, single episode, unspecified
CPT/HCPCS: 71020; 80048; 85027; 93005; 99281; 99283

== ENCOUNTER 2017-04-07 15:02 | Emergency (ER) | payer OTHER ==
[~2017-04-07] VITALS: Ht 190.5 cm; Wt 105.0 kg
[~2017-04-07 15:02] MED LIST changes: +VENTOLIN HFA18 GM IH
[2017-04-07 16:03] LABS: HEMATOCRIT 42.5 % (38.0-50.0); MCH 31.7 PG (29.0-34.0); MCHC 34.6 G/DL (30.0-36.0); MCV 91.8 FL (86-99); MEAN PLAT.VOLUME 10.8 uM^3 (9.0-12.4); PLATELET COUNT 205 K/uL (156-360); RBC DIS.WIDTH-CV 14.2 % (11.8-14.6); RBC DIS.WIDTH-SD 47.3 % (39-53); RED BLOOD COUNT 4.63 M/uL (4.00-5.50)
[2017-04-07 16:14] LABS: CHLORIDE 108 mEq/L (99-109); POTASSIUM 3.7 mEq/L (3.7-5.4); SODIUM 143 mEq/L (136-147)
[2017-04-07 16:16] LABS: GLUCOSE 89 mg/dL (70-99)
[2017-04-07 16:18] LABS: ANION GAP 7 MEQ/L (2-14)
[2017-04-07 16:20] LABS: ALKALINE PHOSPHATASE 71 IU/L (3-129); GFR ESTIMATE (CALCULATED) > 59 mL/min/
[2017-04-07 16:21] LABS: ADD MIUA? NO; BILIRUBIN NEGATIVE; BLOOD NEGATIVE; COLOR YELLOW ((YELLOW)); GLUCOSE (STRIP) NEGATIVE; KETONES NEGATIVE; LEUKOCYTES NEGATIVE; NITRITE NEGATIVE; PROTEIN (STRIP) NEGATIVE; SPECIFIC GRAVITY 1.021 (1.000-1.030); UROBILINOGEN 0.2 MG/DL (0.2-1.0)
[2017-04-07 16:21] LABS: UREA NITROGEN (BUN) 13 mg/dL (9-23)
[2017-04-07 16:22] LABS: TOTAL BILIRUBIN 0.5 mg/dL (0.0-1.0)
[2017-04-07 16:23] LABS: LIPASE 13 U/L (1.0-51.0)
[2017-04-07 17:13] VITALS: BP 144/85
[2017-04-09] MEDS ORDERED: CIPRO500 MG PO (22:51)
[2017-04-09] MEDS ORDERED: FLAGYL500 MG PO (22:51)
== END 2017-04-07 17:18 | disposition home or self-care (01) ==
LOC: EME 15:02
PROVIDERS: Nurse Practitioner Family
DX: K29.20 Alcoholic gastritis without bleeding (principal); F10.288 Alcohol dependence with other alcohol-induced disorder; F41.9 Anxiety disorder, unspecified; F32.9 Major depressive disorder, single episode, unspecified; F17.200 Nicotine dependence, unspecified, uncomplicated
CPT/HCPCS: 80053; 81003; 83690; 85027; 99281; 99284

== ENCOUNTER 2017-06-14 16:23 | Emergency (ER) | payer OTHER ==
[~2017-06-14] VITALS: Ht 190.5 cm; Wt 115.5 kg
[2017-06-14 17:01] VITALS: BP 135/75
[2017-06-14] MEDS ORDERED: NORCO 5/3251 TABLET PO (17:44)
[2017-06-14] MEDS ORDERED: PEN-VEE K,VEET500 MG PO (17:44)
== END 2017-06-14 18:14 | disposition home or self-care (01) ==
LOC: EME 16:23
DX: K04.7 Periapical abscess without sinus (principal); K02.9 Dental caries, unspecified; K03.81 Cracked tooth; R51 Headache; F17.200 Nicotine dependence, unspecified, uncomplicated
CPT/HCPCS: 99281; 99283

== ENCOUNTER 2017-08-30 13:07 | Emergency (ER) | payer OTHER ==
[~2017-08-30] VITALS: Ht 188 cm; Wt 133.6 kg
[~2017-08-30 13:07] MED LIST changes: +NORCO 5/3251 TABLET PO
[2017-08-30 13:34] LABS: HEMATOCRIT 43.9 % (38.0-50.0); HEMOGLOBIN 15.3 G/DL (12.5-16.6); MCH 31.4 PG (29.0-34.0); MCHC 34.9 G/DL (30.0-36.0); MCV 90.1 FL (86-99); RBC DIS.WIDTH-CV 12.4 % (11.8-14.6); RBC DIS.WIDTH-SD 40.9 % (39-53); RED BLOOD COUNT 4.87 M/uL (4.00-5.50); WHITE BLOOD COUNT 3.9 K/uL (4.1-10.2)
[2017-08-30 13:39] LABS: PLATELET COUNT 177 K/uL (156-360)
[2017-08-30 13:45] LABS: ALBUMIN 4.3 g/dL (3.2-4.8)
[2017-08-30 13:46] LABS: CHLORIDE 106 mEq/L (99-109); POTASSIUM 4.5 mEq/L (3.7-5.4); SODIUM 140 mEq/L (136-147)
[2017-08-30 13:48] LABS: GLUCOSE 91 mg/dL (70-99); TOTAL PROTEIN 7.4 g/dL (6.4-8.3)
[2017-08-30 13:50] LABS: TOTAL BILIRUBIN 0.7 mg/dL (0.0-1.0)
[2017-08-30 13:51] LABS: ALKALINE PHOSPHATASE 73 IU/L (3-129)
[2017-08-30 13:52] LABS: GFR ESTIMATE (CALCULATED) > 59 mL/min/ (58.99-99999)
[2017-08-30 13:53] LABS: AST (GOT) 17 IU/L (2-34); UREA NITROGEN (BUN) 14 mg/dL (9-23)
[2017-08-30 13:54] LABS: ALT (GPT) 13 IU/L (3-49)
[2017-08-30 13:55] LABS: LIPASE 19 U/L (1.0-51.0)
[2017-08-30 15:16] LABS: APPEARANCE CLEAR ((CLEAR)); BILIRUBIN NEGATIVE; BLOOD NEGATIVE; COLOR YELLOW ((YELLOW)); GLUCOSE (STRIP) NEGATIVE; KETONES NEGATIVE; LEUKOCYTES NEGATIVE; NITRITE NEGATIVE; PROTEIN (STRIP) NEGATIVE; SPECIFIC GRAVITY 1.012 (1.000-1.030); UCUL ADDED? NO; UROBILINOGEN 0.2 MG/DL (0.2-1.0)
[2017-08-30] MEDS ORDERED: ZOFRAN ODT4 MG PO (17:14)
[2017-08-30 17:28] VITALS: BP 152/90
== END 2017-08-30 17:32 | disposition home or self-care (01) ==
LOC: EME 13:07
DX: R10.13 Epigastric pain (principal); K21.9 Gastro-esophageal reflux disease without esophagitis; F32.9 Major depressive disorder, single episode, unspecified; F41.9 Anxiety disorder, unspecified; F17.200 Nicotine dependence, unspecified, uncomplicated
CPT/HCPCS: 74022; 80053; 81003; 83690; 85027; 99281; 99284

== ENCOUNTER 2017-09-19 18:26 | Emergency (ER) | payer OTHER ==
[~2017-09-19] VITALS: Ht 190.5 cm; Wt 130.8 kg
[~2017-09-19 18:26] MED LIST changes: +ZOFRAN ODT4 MG PO
[2017-09-19 18:58] LABS: ALBUMIN 4.7 g/dL (3.2-4.8)
[2017-09-19 18:59] LABS: CHLORIDE 104 mEq/L (99-109); POTASSIUM 4.4 mEq/L (3.7-5.4); SODIUM 141 mEq/L (136-147)
[2017-09-19 19:01] LABS: GLUCOSE 96 mg/dL (70-99); TOTAL PROTEIN 8.2 g/dL (6.4-8.3)
[2017-09-19 19:02] LABS: HEMATOCRIT 48.6 % (38.0-50.0); HEMOGLOBIN 17.1 G/DL (12.5-16.6); MCH 31.3 PG (29.0-34.0); MCHC 35.2 G/DL (30.0-36.0); RBC DIS.WIDTH-CV 12.7 % (11.8-14.6); RBC DIS.WIDTH-SD 41.4 % (39-53); RED BLOOD COUNT 5.46 M/uL (4.00-5.50); WHITE BLOOD COUNT 4.5 K/uL (4.1-10.2)
[2017-09-19 19:04] LABS: ALKALINE PHOSPHATASE 85 IU/L (3-129)
[2017-09-19 19:05] LABS: CREATININE 1.1 mg/dL (0.6-1.3); GFR ESTIMATE (CALCULATED) > 59 mL/min/ (58.99-99999)
[2017-09-19 19:06] LABS: AST (GOT) 18 IU/L (2-34); UREA NITROGEN (BUN) 16 mg/dL (9-23)
[2017-09-19 19:07] LABS: ALT (GPT) 16 IU/L (3-49)
[2017-09-19 20:00] LABS: PLAT.SUFFICIENCY ADEQUATE; PLATELET COUNT 215 K/uL (156-360)
[2017-09-19 20:18] LABS: APPEARANCE SL.HAZY ((CLEAR)); BILIRUBIN NEGATIVE; BLOOD NEGATIVE; COLOR YELLOW ((YELLOW)); GLUCOSE (STRIP) NEGATIVE; KETONES NEGATIVE; LEUKOCYTES NEGATIVE; NITRITE NEGATIVE; PROTEIN (STRIP) 30; SPECIFIC GRAVITY 1.027 (1.000-1.030)
[2017-09-19 20:25] LABS: BACTERIA NONE SEEN /HPF; EPITHELIAL CELLS 1+ /HPF; MUCUS 2+ /LPF; RED BLOOD CELLS 0-5 /HPF (0-5); UCUL ADDED? NO; WHITE BLOOD CELLS 0-5 /HPF (0-5)
[2017-09-19 20:51] LABS: LIPASE 17 U/L (1.0-51.0)
[2017-09-19] MEDS ORDERED: PRILOSEC20 MG PO (22:33)
[2017-09-19] MEDS ORDERED: ZOFRAN4 MG SL (22:33)
[2017-09-19 22:59] VITALS: BP 141/77
== END 2017-09-19 23:00 | disposition home or self-care (01) ==
LOC: EME 18:26
DX: R10.10 Upper abdominal pain, unspecified (principal); F10.10 Alcohol abuse, uncomplicated; Y90.9 Presence of alcohol in blood, level not specified; K21.9 Gastro-esophageal reflux disease without esophagitis; F41.9 Anxiety disorder, unspecified; F32.9 Major depressive disorder, single episode, unspecified; F17.200 Nicotine dependence, unspecified, uncomplicated; Z87.19 Personal history of other diseases of the digestive system
CPT/HCPCS: 74177; 80053; 81003; 83690; 85027; 99281; 99284; J1885; J2405; J7030

== ENCOUNTER 2017-10-30 12:44 | Emergency (ER) | payer OTHER ==
[~2017-10-30] VITALS: Ht 190.5 cm; Wt 131.3 kg
[~2017-10-30 12:44] MED LIST changes: +PRILOSEC20 MG PO; +ZOFRAN4 MG SL
[2017-10-30 13:32] LABS: HEMATOCRIT 44.2 % (38.0-50.0); HEMOGLOBIN 15.7 G/DL (12.5-16.6); MCHC 35.5 G/DL (30.0-36.0); MCV 87.4 FL (86-99); RBC DIS.WIDTH-CV 13.1 % (11.8-14.6); RBC DIS.WIDTH-SD 41.6 % (39-53); RED BLOOD COUNT 5.06 M/uL (4.00-5.50); WHITE BLOOD COUNT 8.2 K/uL (4.1-10.2)
[2017-10-30 13:40] LABS: CHLORIDE 106 mEq/L (99-109); POTASSIUM 3.8 mEq/L (3.7-5.4); SODIUM 141 mEq/L (136-147)
[2017-10-30 13:42] LABS: GLUCOSE 68 mg/dL (70-99)
[2017-10-30 13:46] LABS: CREATININE 0.9 mg/dL (0.6-1.3); GFR ESTIMATE (CALCULATED) > 59 mL/min/ (58.99-99999)
[2017-10-30 13:47] LABS: UREA NITROGEN (BUN) 11 mg/dL (9-23)
[2017-10-30 14:06] LABS: PLAT.SUFFICIENCY ADEQUATE; PLATELET COUNT 201 K/uL (156-360)
[2017-10-30 14:20] LABS: APPEARANCE SL.HAZY ((CLEAR)); BILIRUBIN NEGATIVE; BLOOD NEGATIVE; COLOR YELLOW ((YELLOW)); GLUCOSE (STRIP) NEGATIVE; KETONES 80; LEUKOCYTES NEGATIVE; NITRITE NEGATIVE; PROTEIN (STRIP) 30; SPECIFIC GRAVITY 1.027 (1.000-1.030)
[2017-10-30 14:24] LABS: BACTERIA NONE SEEN /HPF; EPITHELIAL CELLS RARE /HPF; MUCUS 4+ /LPF; RED BLOOD CELLS 0-5 /HPF (0-5); UCUL ADDED? NO; WHITE BLOOD CELLS 0-5 /HPF (0-5)
[2017-10-30] MEDS ORDERED: ATIVAN2 MG PO (14:46)
[2017-10-30] MEDS ORDERED: THIAMINE HCL100 MG PO (14:46)
[2017-10-30 14:48] VITALS: BP 152/72
== END 2017-10-30 14:48 | disposition home or self-care (01) ==
LOC: EME 12:44
DX: F10.10 Alcohol abuse, uncomplicated (principal); F41.9 Anxiety disorder, unspecified; F32.9 Major depressive disorder, single episode, unspecified; F17.200 Nicotine dependence, unspecified, uncomplicated; Z87.19 Personal history of other diseases of the digestive system; Z98.890 Other specified postprocedural states
CPT/HCPCS: 74018; 80048; 81003; 85027; 99281; 99284